=== PATIENT | female | born 1990 | race African-American/Black ===

== ENCOUNTER 2020-09-21 18:26 | Emergency (ER) | payer MEDICAID, SELFPAY ==
--- NOTE | 2020-09-21 07:34 | ECG_ITS ---
Test Reason : CHEST PAIN Blood Pressure : / mmHG Vent. Rate : 054 BPM Atrial Rate : 054 BPM P-R Int : 128 ms QRS Dur : 090 ms QT Int : 416 ms P-R-T Axes : 005 029 021 degrees QTc Int : 394 ms Sinus bradycardia with sinus arrhythmia Normal ECG No previous ECGs available Referred By: Bri Haines Electronically Signed By:TOSHA MATAMOROS
[2020-09-21 20:16] VITALS: BP 117/71; PULSE 60; RESP 16; TEMP 36.9; O2SAT 100; BMI 40.7
--- NOTE | 2020-09-21 21:39 | ED_ITS ---
HPI - Chest Pain General Chief Complaint: Chest Pain Stated Complaint: COVID symptoms Time Seen by Provider: 09/21/20 21:19 Source: patient Mode of arrival: ambulatory History of Present Illness HPI narrative: This is a 30-year-old female without significant past medical history of cardiac disease and denies any significant family history of cardiac disease who presents with 3 days of nausea, vomiting, diarrhea and denies known contaminated food, recent travel, or smoking marijuana. The symptoms have not been associated with nausea, chills, sore throat, cough, urinary symptoms, but patient states that she has developed chest pressure since 9:00 a.m. this morning that she states radiates into the left shoulder and is associated with inspiration as well as movement. She denies that is burning in nature and does not think that this is acid reflux or secondary to the nausea and vomiting. Of note, there is no abdominal pain and patient states that it has ?been awhile since her last menstrual period? and states that there is the possibility that she may be . Related Data Allergies Allergy/AdvReac Type Severity Reaction Status Date / Time azithromycin AdvReac Mild Nausea Verified 09/21/20 21:34 Review of Systems Review of Systems: Pertinent positives and negatives as stated in HPI 10 point review of systems is otherwise negative. PMFSH Past Medical History Source: nursing notes reviewed Social History Social History Alcohol intake: never Smoking Status: Current every day smoker Use of substances other than those prescribed or required for medical reasons: No Advance Directives: No Advance Directives Information Provided: Yes Physical Exam Vital Signs: Vital Signs: Last Vital Signs Temp 98.4 F 09/21/20 22:33 Pulse 56 09/21/20 22:33 Resp 18 09/21/20 22:33 BP 96/67 09/21/20 22:33 Pulse Ox 100 09/21/20 22:33 Body Mass Index 40.7 VITAL SIGNS: Reviewed. GENERAL: Well developed, well nourished, in no acute distress. HEAD: Normocephalic/atraumatic, EYES: PERRLA, EOMI intact EARS: Ext canals without abnormality NOSE: Nares patent bilateral OROPHARYNX: no oral lesions noted, posterior pharynx clear and non-erythematous without noted tonsillar enlargement/erythema/exudates, dry mucosa NECK: Supple, no adenopathy LUNGS: Normal breath sounds. No adventitious sounds or accessory muscle use. SpO2<100> CARDIOVASCULAR: Regular rate and rhythm without noted murmurs ABDOMEN: Soft, non-tender, non-distended with bowel sounds. NEUROLOGIC: Alert and oriented x 4. Course Course Course Narrative: 30-year-old female with history and clinical presentation consistent with gastroenteritis likely viral, , and given history and describes symptoms low clinical suspicion for cardiac ischemic etiology of chest pain. Suspect that this is likely a costochondritis given the association with respiration movement. Review of all investigations negative for any acute findings other than positive test. Patient received IV fluid resuscitation as well as medication for nausea which on re-evaluation patient was noted to tolerate oral intake. Patient was being prepared for obtaining ultrasound as she was noted to be , but she decided to sign out against medical advice prior to obtaining the ultrasound. She left in stable condition tolerating oral intake. MDM - Chest Pain Lab Data Result diagrams: 09/21/20 23:56 09/21/20 23:56 Labs: Lab Results 09/21/20 09/21/20 09/21/20 Range/Units 21:46 21:48 21:48 WBC (4.8-10.8) X10*3/uL RBC (4.20-5.50) X10*6/uL Hgb (12.0-16.0) g/dl Hct (37-47) % MCV (80-98) fL MCH (27.0-33.0) pg MCHC (31.0-35.0) g/dl RDW (11.0-16.0) % Plt Count (160-400) X10*3/uL MPV (9.4-12.3) fL Immature Gran % (Auto) (0.0-0.4) % Neut % (Auto) (45-73) % Lymph % (Auto) (20-40) % [place] % (Auto) (2-11) % Eos % (Auto) (0-4) % Baso % (Auto) (0-2) % Lymph # (Auto) (1.2-4.9) X10*3/uL [place] # (Auto) (0.1-1.2) X10*3/uL Eos # (Auto) (0.0-0.4) X10*3/uL Baso # (Auto) (0.0-0.2) X10*3/uL Abs Immat Gran (auto) (0.00-0.03) X10*3/uL Absolute Neuts (auto) (2.0-8.3) X10*3/uL Absolute Nucleated RBC (0.0-0.012) X10*3/uL Nucleated RBC % (auto) (0.0-0.2) /100WBC Sodium (135-145) mmol/L Potassium (3.3-5.1) mmol/L Chloride (96-108) mmol/L Carbon Dioxide (22-29) mmol/L Anion Gap (12-20) BUN (9-16) mg/dL Creatinine (0.5-1.4) mg/dL Estim Creat Clear Calc Estimated GFR Random Glucose (60-115) mg/dL Calcium (8.4-10.2) mg/dL Total Bilirubin (0.0-1.0) mg/dL AST (5-31) U/L ALT (0-31) U/L Alkaline Phosphatase (39-117) U/L Total Protein (6.5-8.0) g/dL Albumin (3.5-5.0) g/dL Beta HCG, Quant mIU/mL Urine Color YELLOW Urine Appearance HAZY Urine pH 6.0 (5.0-8.0) Ur Specific [place] >= 1.030 H (1.005-1.025) Urine Protein TRACE (NEG-TRACE) MG/DL Urine Glucose (UA) NEG (NEG) MG/DL Urine Ketones >=80 (NEG) MG/DL Urine Blood NEG (NEG) Urine Nitrite NEG (NEG) Ur Leukocyte Esterase NEG (NEG) Urine Test POSITIVE H (NEGATIVE) COVID-19 ([facility]) Negative (Negative) COVID-19 Clin Com See Note 09/21/20 09/21/20 Range/Units 23:56 23:56 WBC 8.8 (4.8-10.8) X10*3/uL RBC 4.20 (4.20-5.50) X10*6/uL Hgb 12.0 (12.0-16.0) g/dl Hct 37.5 (37-47) % MCV 89.3 (80-98) fL MCH 28.6 (27.0-33.0) pg MCHC 32.0 (31.0-35.0) g/dl RDW 14.6 (11.0-16.0) % Plt Count 277 (160-400) X10*3/uL MPV 10.4 (9.4-12.3) fL Immature Gran % (Auto) 0.3 (0.0-0.4) % Neut % (Auto) 69.3 (45-73) % Lymph % (Auto) 21.1 (20-40) % [place] % (Auto) 7.9 (2-11) % Eos % (Auto) 1.1 (0-4) % Baso % (Auto) 0.3 (0-2) % Lymph # (Auto) 1.9 (1.2-4.9) X10*3/uL [place] # (Auto) 0.7 (0.1-1.2) X10*3/uL Eos # (Auto) 0.1 (0.0-0.4) X10*3/uL Baso # (Auto) 0.0 (0.0-0.2) X10*3/uL Abs Immat Gran (auto) 0.03 (0.00-0.03) X10*3/uL Absolute Neuts (auto) 6.1 (2.0-8.3) X10*3/uL Absolute Nucleated RBC 0.000 (0.0-0.012) X10*3/uL Nucleated RBC % (auto) 0.0 (0.0-0.2) /100WBC Sodium 136 (135-145) mmol/L Potassium 3.7 (3.3-5.1) mmol/L Chloride 106 (96-108) mmol/L Carbon Dioxide 22 (22-29) mmol/L Anion Gap 12 (12-20) BUN 7 L (9-16) mg/dL Creatinine 0.71 (0.5-1.4) mg/dL Estim Creat Clear Calc 136.3 Estimated GFR > 60 Random Glucose 78 (60-115) mg/dL Calcium 8.8 (8.4-10.2) mg/dL Total Bilirubin 0.4 (0.0-1.0) mg/dL AST 11 (5-31) U/L ALT 6 (0-31) U/L Alkaline Phosphatase 55 (39-117) U/L Total Protein 6.6 (6.5-8.0) g/dL Albumin 3.7 (3.5-5.0) g/dL Beta HCG, Quant 88398 mIU/mL Urine Color Urine Appearance Urine pH (5.0-8.0) Ur Specific [place] (1.005-1.025) Urine Protein (NEG-TRACE) MG/DL Urine Glucose (UA) (NEG) MG/DL Urine Ketones (NEG) MG/DL Urine Blood (NEG) Urine Nitrite (NEG) Ur Leukocyte Esterase (NEG) Urine Test (NEGATIVE) COVID-19 ([facility]) (Negative) COVID-19 Clin Com Discharge Plan Discharge Clinical Impression: , Atypical chest pain, Costochondritis Patient Disposition: Left Against Medical Advice Discharge Date/Time: 09/22/20 01:59
[2020-09-21 21:57] LABS: Glucose Urine UA NEG (NEG); Leukocyte Esterase Urine NEG (NEG); Nitrite Urine NEG (NEG); Specific Gravity - Urine >= 1.030 (1.005-1.025); Urine Blood NEG (NEG); Urine Ketones >=80 MG/DL (NEG); Urine Protein TRACE MG/DL (NEG-TRACE)
[2020-09-21 21:58] LABS: Appearance Urine HAZY; Color Urine YELLOW
[2020-09-21 21:59] LABS: UPreg QC Valid YES; Urine Pregnancy POSITIVE (NEGATIVE)
[2020-09-21 22:12] LABS: COVID-19 Test Negative (Negative)
[2020-09-21] MEDS: ondansetron HCL 4 MG/2 ML VIAL IVPUSH (22:13)
[2020-09-21] MEDS: 0.9 % Sodium Chloride 1,000 ML 999 ML IV (22:13)
[2020-09-21 22:33] VITALS: BP 96/67; PULSE 56; RESP 18; TEMP 36.9; O2SAT 100
[2020-09-22 00:02] LABS: MANUAL DIFF FLAG NO
[2020-09-22 00:03] LABS: Basophils Percent Auto 0.3 % (0-2); Eosinophils Absolute Auto 0.1 X10*3/uL (0.0-0.4); Eosinophils Percent Auto 1.1 % (0-4); Hematocrit 37.5 % (37-47); Imm Gran Abs Auto 0.03 X10*3/uL (0.00-0.03); Imm Gran Pct Auto 0.3 % (0.0-0.4); Lymphocytes Absolute Auto 1.9 X10*3/uL (1.2-4.9); Lymphocytes Percent Auto 21.1 % (20-40); Mean Corpuscular Hemoglobin 28.6 pg (27.0-33.0); Mean Corpuscular Volume 89.3 fL (80-98); Mean Platelet Volume 10.4 fL (9.4-12.3); Monocytes Absolute Auto 0.7 X10*3/uL (0.1-1.2); Monocytes Percent Auto 7.9 % (2-11); Neutrophils Absolute Auto 6.1 X10*3/uL (2.0-8.3); Neutrophils Percent Auto 69.3 % (45-73); Platelet Count 277 X10*3/uL (160-400); Red Cell Distribution Width 14.6 % (11.0-16.0); White Blood Count 8.8 X10*3/uL (4.8-10.8)
[2020-09-22 00:27] LABS: Alanine Aminotransferase 6 U/L (0-31); Albumin Level 3.7 g/dL (3.5-5.0); Alkaline Phosphatase 55 U/L (39-117); Anion Gap 12 (12-20); Aspartate Amino Transferase 11 U/L (5-31); Bilirubin Total 0.4 mg/dL (0.0-1.0); Blood Urea Nitrogen 7 mg/dL (9-16); Calcium 8.8 mg/dL (8.4-10.2); Carbon Dioxide 22 mmol/L (22-29); Chloride 106 mmol/L (96-108); Creatinine Clr Calc Pharmacy 136.3; Estimated Glomerular Filt Rate > 60; Glucose Random 78 mg/dL (60-115); Potassium 3.7 mmol/L (3.3-5.1); Sodium 136 mmol/L (135-145); Total Protein 6.6 g/dL (6.5-8.0)
--- NOTE | 2020-09-22 01:54 | PC.NURSE ---
RN ENTERED PT ROOM TO ASSESS VITAL SIGNS, UPON ENTERING ROOM PT BEGAN YELLING AT RN SAYING NO ONE WAS DOING ANYTHING AND THAT SHE HAD BEEN IN THE HOSPITAL TOO LONG RN EXPLAINED TO PT THAT WE WERE WAITING ON LAB RESULTS TO THEN DO AN ULTRASOUND, PT DEMANDED HER IV BE TAKEN OUT AND THAT SHE BE DISCHARGED, AND THEN PROCEEDED TO INSULT RN. PT THEN REMOVED HER OWN IV AND SAID SHE WOULD LEAVE AMA. PT REFUSED TO SIGN AMA PAPERWORK AND REFUSED VITAL SIGNS. PT EDUCATED ON THE IMPORTANCE OF THE SCHEDULED ULTRASOUND, BUT PT REFUSED ANY TEACHING AND CONTINUED TO INSULT STAFF. PT A+O, AMBULATORY, STEADY GAIT. PT LEFT AMA, MADE AWARE.
== END 2020-09-22 01:59 | disposition left against medical advice (07) ==
PROVIDERS: Emergency Provider Student in an Organized Health Care Education/Training Program; PCP Internal Medicine
DX: O26.91 Pregnancy related conditions, unspecified, first trimester (principal); Z3A.00 Weeks of gestation of pregnancy not specified; R05 Cough; F17.200 Nicotine dependence, unspecified, uncomplicated; Z20.822 Contact with and (suspected) exposure to COVID-19; Z71.6 Tobacco abuse counseling
CPT/HCPCS: 36415; 80053; 81003; 81025; 84702; 85025; 87635; 93005; 96365; 96375; 99284; J2405